=== PATIENT | female | born 1940 | race Caucasian/White ===

== ENCOUNTER 2017-07-28 09:12 | Day surgery (SDC) | payer MEDICARE, OTHER ==
[~2017-07-28] VITALS: Ht 160 cm; Wt 74.3 kg
[~2017-07-28 09:12] MED LIST: ALBU90OI INH; ASPI325 PO; CITRACEL; ERGO400 PO; ESTR25VT PV; FURO20 PO; GINKO BILOBA; LEVSOD25 PO; METO100 PO; OMEP20ER PO; PANT40 PO; RISE35 PO; Zestril PO; [UNRECOGNIZED DRUG - OTHER] PO
[2017-07-28] MEDS ORDERED: CARV25 PO (09:56)
[2017-07-28] MEDS ORDERED: ALEN70 PO (09:57)
== END 2017-07-28 11:37 | disposition home or self-care (01) ==
LOC: ORSCSDS 09:12
PROVIDERS: Internal Medicine Gastroenterology
PROC: 0DBK8ZX Excision of Ascending Colon, Via Natural or Artificial Opening Endoscopic, Diagnostic (ICD-10-PCS; principal; 2017-07-28 10:30)
PROC: 0DBH8ZX Excision of Cecum, Via Natural or Artificial Opening Endoscopic, Diagnostic (ICD-10-PCS; principal; 2017-07-28 10:30)
DX: Z12.11 Encounter for screening for malignant neoplasm of colon (principal); D12.0 Benign neoplasm of cecum; D12.2 Benign neoplasm of ascending colon; K57.30 Diverticulosis of large intestine without perforation or abscess without bleeding; Z86.010 Personal history of colon polyps; Z80.0 Family history of malignant neoplasm of digestive organs; Z79.82 Long term (current) use of aspirin; Z79.899 Other long term (current) drug therapy
CPT/HCPCS: 88305; J7120

== ENCOUNTER → 2017-09-28 | Outpatient (CLI) | payer MEDICARE, OTHER ==
[~2017-09-28] MED LIST changes: +ALEN70 PO; +CARV25 PO
== END | disposition home or self-care (01) ==
LOC: PLD 13:23 → LAB SHORT 13:23
DX: D22.72 Melanocytic nevi of left lower limb, including hip (principal)
CPT/HCPCS: 88305

== ENCOUNTER → 2017-10-12 | Outpatient (CLI) | payer MEDICARE, OTHER | END | disposition home or self-care (01) | LOC: PLD 13:27 → LAB SHORT 13:27 | DX: D03.72 Melanoma in situ of left lower limb, including hip (principal) | CPT/HCPCS: 88305 ==

== ENCOUNTER → 2018-10-27 | Outpatient (CLI) | payer MEDICARE, OTHER | END | disposition home or self-care (01) | LOC: LAB EV 09:00 → LAB SHORT 09:00 | DX: R39.9 Unspecified symptoms and signs involving the genitourinary system (principal) | CPT/HCPCS: 87086 ==

== ENCOUNTER → 2018-11-28 | Outpatient (CLI) | payer MEDICARE, OTHER | END | disposition home or self-care (01) | LOC: LAB SHORT 10:16 → PLD 10:16 | DX: D48.5 Neoplasm of uncertain behavior of skin (principal) | CPT/HCPCS: 88305 ==

== ENCOUNTER 2024-05-18 07:32 | Day surgery (SDC) | payer OTHER ==
[~2024-05-18] VITALS: Ht 160 cm; Wt 74.2 kg
[~2024-05-18 07:32] MED LIST changes: +Prinivil10 MG PO
[2024-05-18] MEDS ORDERED: propofoL 50 ML IV ONE (07:39)
[2024-05-18] MEDS ORDERED: Lidocaine HCl 1% 30 ML SDV ONE (07:40)
[2024-05-18] MEDS ORDERED: Lactated Ringer's 1,000 ML IV ONE ×2 (07:41→07:56)
[2024-05-18 09:26] VITALS: BP 127/62
== END 2024-05-18 09:44 | disposition home or self-care (01) ==
LOC: ORSCSDS 07:32
PROVIDERS: Internal Medicine Gastroenterology
PROC: 0DBK8ZX Excision of Ascending Colon, Via Natural or Artificial Opening Endoscopic, Diagnostic (ICD-10-PCS; principal; 2024-05-18 09:00)
DX: K62.5 Hemorrhage of anus and rectum (principal); R19.4 Change in bowel habit; Z86.0100 Personal history of colon polyps, unspecified; Z79.82 Long term (current) use of aspirin; I10 Essential (primary) hypertension; E66.9 Obesity, unspecified; Z79.899 Other long term (current) drug therapy
CPT/HCPCS: 88305; J2704; J7120